=== PATIENT | female | born 2000 | race African-American/Black ===

== ENCOUNTER 2024-01-23 14:59 | Inpatient (IN) | payer OTHER, SELFPAY ==
[~2024-01-23 14:59] MED LIST: Iopamidol 300 61% 100 ML VIAL FS ONE
[2024-01-23] MEDS ORDERED: Ondansetron PF 4 MG/2 ML Vial ONE ×3 (15:45→19:20)
[2024-01-23] MEDS ORDERED: Morphine 4 MG/ML VIAL ONE (15:45)
[2024-01-23] MEDS ORDERED: Ketorolac Tromethamine 30 MG (1 mL) VIAL ONE (15:46)
[2024-01-23 16:25] LABS: Bilirubin Neg (Negative); Blood, Urine Negative (Negative); Clarity Clear (Clear); Glucose, Urine (Dipstick) Normal (Negative); Ketone, Urine Negative (Negative); Leukocyte 25 (Negative); Nitrite Negative (Negative); Protein, Urine (Dipstick) Negative (Neg-Trace); Specific Gravity, Urine 1.015 (1.005-1.030); Urobilinogen Normal mg/dL (Less than 2)
[2024-01-23 16:27] LABS: #Basophils 0.05 10x3/uL (0.0-0.2); #Eosinophils 0.02 10x3/uL (0.0-0.5); #Monocytes 0.92 10x3/uL (0.0-1.1); #Neutrophils 6.98 10x3/uL (1.5-8.4); %Basophils 0.5 % (0.0-2.0); %Eosinophils 0.2 % (0.0-6.0); %Lymphocytes 21.7 % (18.0-47.0); %Neutrophils 68.3 % (40.0-75.0); Hematocrit 32.1 % (34.9-44.5); Mean Corpuscular HGB CONC 34.3 g/dL (32.0-36.0); Mean Corpuscular Hemoglobin 28.6 pg (27.0-33.0); Mean Corpuscular Volume 83.6 fL (81.6-98.3); Mean Platelet Volume 9.5 fL (7.4-10.4); Platelet Count 442 10x3/uL (150-450); RBC Distribution Width 13.3 % (11.5-14.5); Red Blood Cell (RBC) Count 3.84 10x6/uL (3.90-5.03); White Blood Cell (WBC) Count 10.2 10x3/uL (3.5-10.5)
[2024-01-23 16:36] LABS: BHCG - Serum POSITIVE (NEGATIVE); Pregs Control Background? CLEAR/WHITE (CLR/WHITE); Pregs Control Bar Appear? YES (CONTROL BAR)
[2024-01-23 16:41] LABS: Bacteria/HPF 1+ HPF (None Seen); CAUTI Indications for Culture Pelvic or flank pain; RBC/HPF 0-3 HPF (0-3); Squamous Epithelial 0-3 HPF (0-3)
[2024-01-23 16:43] LABS: ALT (SGPT) 58 U/L (8-55); AST (SGOT) 75 U/L (5-34); Alkaline Phosphatase 96 U/L (40-110); Anion Gap 14 mmol/L (10-20); BUN (Urea Nitrogen) 12 mg/dL (7.0-18.7); Bilirubin, Total 0.5 mg/dL (0.2-1.2); Calc. Creatinine Clearance 0 mL/min (70-130); Carbon Dioxide 19 mmol/L (22-29); Chloride 105 mmol/L (98-107); Estimated GFR 118; Globulin 3.9 g/dL (2.4-3.5); Glucose 86 mg/dL (70-105); Lipase 12 U/L (8-78); Magnesium 1.9 mg/dL (1.6-2.6); Potassium 4.1 mmol/L (3.5-5.1); Protein, Total 6.9 g/dL (6.0-8.3); Sodium 134 mmol/L (136-145); Urine Culture Reflex No No
[2024-01-23] MEDS ORDERED: Piperacillin/Tazobactam 3.375 GM VIAL ONE (19:21)
[2024-01-23] MEDS ORDERED: Bisacodyl 5 MG TAB PO PRN (22:33)
[2024-01-23] MEDS ORDERED: Ondansetron PF 4 MG/2 ML Vial IVP PRN (22:33)
[2024-01-23 22:41] VITALS: BMI 26.9
[2024-01-24] MEDS: Sodium Chloride 0.9% 1,000 ML IV SCH (00:04)
[2024-01-24 00:05] LABS: PTT 27.1 sec (22.0-33.0); Prothrombin Time 10.7 sec (9.5-12.1)
[2024-01-24] MEDS: Albumin 25% 25 GM (100 mL) BOT IVPB SCH (00:11)
[2024-01-24] MEDS: Ibuprofen 800 MG TAB PO SCH (00:23)
[2024-01-24] MEDS: Acetaminophen 325 MG TAB PO SCH (00:24)
[2024-01-24 05:07] LABS: #Basophils 0.04 10x3/uL (0.0-0.2); #Eosinophils 0.03 10x3/uL (0.0-0.5); #Monocytes 1.12 10x3/uL (0.0-1.1); %Basophils 0.3 % (0.0-2.0); %Eosinophils 0.2 % (0.0-6.0); %Lymphocytes 17.5 % (18.0-47.0); %Monocytes 8.9 % (0.0-10.0); %Neutrophils 72.8 % (40.0-75.0); Hematocrit 28.4 % (34.9-44.5); Hemoglobin 9.7 g/dL (12.0-15.5); Mean Corpuscular HGB CONC 34.2 g/dL (32.0-36.0); Mean Corpuscular Hemoglobin 28.4 pg (27.0-33.0); Mean Corpuscular Volume 83.3 fL (81.6-98.3); Mean Platelet Volume 9.1 fL (7.4-10.4); Platelet Count 406 10x3/uL (150-450); RBC Distribution Width 13.4 % (11.5-14.5); Red Blood Cell (RBC) Count 3.41 10x6/uL (3.90-5.03); White Blood Cell (WBC) Count 12.7 10x3/uL (3.5-10.5)
[2024-01-24] MEDS: HYDROcodone/Acetaminophen 5/325 mg Tablet PO PRN (05:12)
[2024-01-24 05:24] LABS: ALT (SGPT) 63 U/L (8-55); AST (SGOT) 66 U/L (5-34); Alkaline Phosphatase 68 U/L (40-110); Anion Gap 11 mmol/L (10-20); BUN (Urea Nitrogen) 10 mg/dL (7.0-18.7); Bilirubin, Total 0.7 mg/dL (0.2-1.2); Calc. Creatinine Clearance 153 mL/min (70-130); Carbon Dioxide 21 mmol/L (22-29); Chloride 109 mmol/L (98-107); Estimated GFR 126; Glucose 84 mg/dL (70-105); Potassium 4.6 mmol/L (3.5-5.1); Sodium 136 mmol/L (136-145)
[2024-01-24] MEDS: Enoxaparin 40 MG (0.4 mL) SYRINGE SC SCH (10:00)
[2024-01-24 16:04] LABS: #Basophils 0.05 10x3/uL (0.0-0.2); #Eosinophils 0.09 10x3/uL (0.0-0.5); #Monocytes 1.17 10x3/uL (0.0-1.1); #Neutrophils 5.29 10x3/uL (1.5-8.4); %Basophils 0.5 % (0.0-2.0); %Eosinophils 0.9 % (0.0-6.0); %Lymphocytes 32.8 % (18.0-47.0); %Monocytes 11.8 % (0.0-10.0); %Neutrophils 53.6 % (40.0-75.0); Hematocrit 27.1 % (34.9-44.5); Hemoglobin 9.4 g/dL (12.0-15.5); Mean Corpuscular HGB CONC 34.7 g/dL (32.0-36.0); Mean Corpuscular Hemoglobin 29.1 pg (27.0-33.0); Mean Corpuscular Volume 83.9 fL (81.6-98.3); Platelet Count 430 10x3/uL (150-450); RBC Distribution Width 13.5 % (11.5-14.5); Red Blood Cell (RBC) Count 3.23 10x6/uL (3.90-5.03); White Blood Cell (WBC) Count 9.9 10x3/uL (3.5-10.5)
[2024-01-24 16:18] LABS: ALT (SGPT) 81 U/L (8-55); AST (SGOT) 93 U/L (5-34); Albumin 2.8 g/dL (3.5-5.0); Alkaline Phosphatase 105 U/L (40-110); Anion Gap 11 mmol/L (10-20); BUN (Urea Nitrogen) 11 mg/dL (7.0-18.7); Bilirubin, Total 0.5 mg/dL (0.2-1.2); Calc. Creatinine Clearance 146 mL/min (70-130); Carbon Dioxide 20 mmol/L (22-29); Chloride 107 mmol/L (98-107); Estimated GFR 124; Globulin 3.3 g/dL (2.4-3.5); Glucose 93 mg/dL (70-105); Protein, Total 6.1 g/dL (6.0-8.3); Sodium 134 mmol/L (136-145)
[2024-01-24] MEDS: Simethicone Chewable 80 MG TAB PO PRN (17:24)
[2024-01-25 05:13] LABS: #Basophils 0.03 10x3/uL (0.0-0.2); #Eosinophils 0.05 10x3/uL (0.0-0.5); #Monocytes 1.09 10x3/uL (0.0-1.1); #Neutrophils 5.89 10x3/uL (1.5-8.4); %Basophils 0.3 % (0.0-2.0); %Eosinophils 0.5 % (0.0-6.0); %Lymphocytes 23.8 % (18.0-47.0); %Monocytes 11.7 % (0.0-10.0); %Neutrophils 63.4 % (40.0-75.0); Hematocrit 28.8 % (34.9-44.5); Hemoglobin 9.6 g/dL (12.0-15.5); Mean Corpuscular HGB CONC 33.3 g/dL (32.0-36.0); Mean Corpuscular Hemoglobin 28.3 pg (27.0-33.0); Mean Platelet Volume 8.5 fL (7.4-10.4); Platelet Count 386 10x3/uL (150-450); RBC Distribution Width 13.4 % (11.5-14.5); Red Blood Cell (RBC) Count 3.39 10x6/uL (3.90-5.03); White Blood Cell (WBC) Count 9.3 10x3/uL (3.5-10.5)
[2024-01-25] MEDS: Ondansetron ODT 4 MG TAB PO PRN (05:19)
[2024-01-25 05:28] LABS: ALT (SGPT) 84 U/L (8-55); AST (SGOT) 73 U/L (5-34); Albumin 2.8 g/dL (3.5-5.0); Alkaline Phosphatase 97 U/L (40-110); Anion Gap 10 mmol/L (10-20); BUN (Urea Nitrogen) 9 mg/dL (7.0-18.7); Bilirubin, Total 0.5 mg/dL (0.2-1.2); Calc. Creatinine Clearance 157 mL/min (70-130); Calcium 8.9 mg/dL (7.8-10.44); Carbon Dioxide 22 mmol/L (22-29); Chloride 109 mmol/L (98-107); Estimated GFR 126; Globulin 3.2 g/dL (2.4-3.5); Glucose 87 mg/dL (70-105); Potassium 4.4 mmol/L (3.5-5.1); Sodium 137 mmol/L (136-145)
[2024-01-25] MEDS: Docusate 100 MG CAP PO SCH (08:29)
[2024-01-25] MEDS ORDERED: Docusate Sodium 100 MG/10 ML UDCUP PO SCH (09:00)
[2024-01-25 13:12] VITALS: BP 121/63; TEMP 97.9
== END 2024-01-25 13:35 | disposition home or self-care (01) | DRG 920 ==
LOC: CSHERS 14:59 → CSHPED 22:21
PROVIDERS: ADMIT Obstetrics & Gynecology; ATTEND Obstetrics & Gynecology
DX: N98.1 Hyperstimulation of ovaries (principal); E87.1 Hypo-osmolality and hyponatremia; R18.8 Other ascites; J90 Pleural effusion, not elsewhere classified; D25.9 Leiomyoma of uterus, unspecified; Z79.899 Other long term (current) drug therapy; R74.01 Elevation of levels of liver transaminase levels
CPT/HCPCS: 36415; 74177; 76856; 80053; 81001; 83690; 83735; 84702; 84703; 85025; 85610; 85730; 96365; 96375; 96376; J1650; J1885; J2272; J2405; J2543; J7030; P9047; Q0162; Q9967

== ENCOUNTER 2024-02-17 16:39 | Emergency (ER) | payer OTHER ==
[2024-02-17] MEDS ORDERED: Ondansetron PF 4 MG/2 ML Vial ONE (18:26)
[2024-02-17] MEDS ORDERED: Ketorolac Tromethamine 30 MG (1 mL) VIAL ONE (18:26)
[2024-02-17 18:39] LABS: #Basophils 0.02 10x3/uL (0.0-0.2); #Eosinophils 0.03 10x3/uL (0.0-0.5); #Monocytes 0.51 10x3/uL (0.0-1.1); #Neutrophils 5.78 10x3/uL (1.5-8.4); %Basophils 0.3 % (0.0-2.0); %Eosinophils 0.4 % (0.0-6.0); %Lymphocytes 17.4 % (18.0-47.0); %Monocytes 6.6 % (0.0-10.0); Hemoglobin 12.8 g/dL (12.0-15.5); Mean Corpuscular Hemoglobin 27.8 pg (27.0-33.0); Mean Corpuscular Volume 86.8 fL (81.6-98.3); Platelet Count 467 10x3/uL (150-450); RBC Distribution Width 13.3 % (11.5-14.5); Red Blood Cell (RBC) Count 4.61 10x6/uL (3.90-5.03); White Blood Cell (WBC) Count 7.7 10x3/uL (3.5-10.5)
[2024-02-17 19:08] LABS: ALT (SGPT) 22 U/L (8-55); AST (SGOT) 18 U/L (5-34); Albumin 4.6 g/dL (3.5-5.0); Alkaline Phosphatase 85 U/L (40-110); Anion Gap 13 mmol/L (10-20); BUN (Urea Nitrogen) 11 mg/dL (7.0-18.7); Bilirubin, Total 0.8 mg/dL (0.2-1.2); Calc. Creatinine Clearance 0 mL/min (70-130); Calcium 10.4 mg/dL (7.8-10.44); Carbon Dioxide 25 mmol/L (22-29); Chloride 102 mmol/L (98-107); Estimated GFR 118; Globulin 3.6 g/dL (2.4-3.5); Glucose 90 mg/dL (70-105); Lipase 20 U/L (8-78); Potassium 3.5 mmol/L (3.5-5.1); Protein, Total 8.2 g/dL (6.0-8.3); Sodium 136 mmol/L (136-145)
[2024-02-17 19:20] LABS: Bilirubin Neg (Negative); Blood, Urine Negative (Negative); Clarity Clear (Clear); Glucose, Urine (Dipstick) Normal (Negative); Ketone, Urine Negative (Negative); Leukocyte Negative (Negative); Nitrite Negative (Negative); Protein, Urine (Dipstick) Negative (Neg-Trace); Specific Gravity, Urine 1.015 (1.005-1.030); Urobilinogen Normal mg/dL (Less than 2)
[2024-02-17 19:22] LABS: Pregnancy Test - Urine (BHCG) Negative (Negative); Pregu Control Background? CLEAR/WHITE (CLR/WHITE); Pregu Control Bar Appear? YES (CONTROL BAR); Specific Gravity 1.015 (1.002-1.036)
[2024-02-17 20:03] LABS: Bacteria/HPF 2+ HPF (None Seen); CAUTI Indications for Culture Pelvic or flank pain; Mucous/LPF 2+ LPF (<2+); RBC/HPF 0-3 HPF (0-3); Squamous Epithelial 0-3 HPF (0-3); WBC/HPF 0-3 HPF (0-3)
[2024-02-17 20:04] LABS: Urine Culture Reflex No No
== END 2024-02-17 20:12 | disposition home or self-care (01) ==
LOC: CSHERS 16:39
DX: K29.00 Acute gastritis without bleeding (principal)
CPT/HCPCS: 74177; 80053; 81001; 81025; 83690; 85025; 96374; 96375; J1885; J2405; Q9967